=== PATIENT | female | born 1975 | race American Indian/Alaskan Native ===

== ENCOUNTER 2018-04-26 16:58 | Inpatient (IN) | payer BC ==
[2018-04-26 18:18] LABS: Hematocrit 41.5 % (30.3-42.9); Hemoglobin 14.1 gm/dl (10.1-14.3); Mean Corpuscular HGB Conc 34 % (30-34); Mean Corpuscular Volume 94 fl (79-97); Platelet Count 334 K/mm3 (140-440); Red Blood Count 4.41 M/mm3 (3.65-5.03); Red Cell Distribution Width 13.2 % (13.2-15.2)
[2018-04-26 18:37] LABS: BUN/Creatinine Ratio 15; Blood Urea Nitrogen 17 mg/dL (7-17); Hemolysis Index 1
[2018-04-26 19:27] LABS: Band Neutrophils # (Manual) 0.1 K/mm3; Basophils % (Manual) 0 % (0.0-1.8); Eosinophils % (Manual) 0 % (0.0-4.3); Total Cells Counted 100
[2018-04-26 19:28] LABS: Ovalocytes 1+; Platelet Estimate Consistent w Auto
--- NOTE | 2018-04-26 20:35 | XRay Report ---
FINAL REPORT EXAM: XR CHEST ROUTINE 2V HISTORY: Shortness of breath TECHNIQUE: PA and lateral views of the chest PRIORS: None. FINDINGS: Lines, tubes, and devices: N/A Lungs and pleura: Trachea is normal in position. Lungs are clear of infiltrate, pleural effusion, va scular congestion, or pneumothorax. Cardiomediastinal silhouette: Cardiac and mediastinal silhouettes are unremarkable. Other: Bony structures are intact. IMPRESSION: No acute cardiopulmonary process seen.
[2018-04-26] MEDS ORDERED: SUBLIMAZE IV ONE (21:24)
[2018-04-26] MEDS ORDERED: NITRO-BID 2% TP ONE (21:24)
[2018-04-26] MEDS ORDERED: ZOFRAN IV ONE (21:24)
--- NOTE | 2018-04-26 21:24 | Emergency Department Report ---
HPI - General Chief Complaint: Chest Pain Time Seen by Provider: 04/26/18 20:17 - HPI HPI: [place] 5 The patient is a 42-year-old female presenting with a chief complaint of chest pain and headache. The patient states her symptoms began 3 days ago with a c onstant frontal headache. Patient denies any preceding trauma. The patient states today she developed substernal left-sided chest pain described as pressure. The patient states the pain was initially intermittent but has now become constant. The patient states she does have shortness of breath, diaphoresis and nausea with her chest pain. Patient denies any recent flights or long car trips. Patient gives her chest pain score of 4-5/10 and her headache is score of 8-9/10. Patient states she's never had a stress test or cardiac catheterization Location: Chest, head Duration: [See above] Quality: Pressure Severity: 4-9/10, see above Modifying factors: [see above] Context: [see above] Mode of transportation: [not driving] ED Past Medical Hx - Past Medical History Previous Medical History?: Yes Hx Asthma: Yes - Surgical History Past Surgical History?: No - Family History Family history: no significant - Social History Smoking Status: Never Smoker Substance Use Type: None (denies illicit drug use), Alcohol (occasional) ED Review of Systems ROS: Stated complaint: HEADACHE/CHEST PAIN Other details as noted in HPI Constitutional: diaphoresis Eyes: denies: eye pain ENT: denies: throat pain Respiratory: shortness of breath Cardiovascular: chest pain Endocrine: no symptoms reported Gastrointestinal: nausea. denies: vomiting Genitourinary: denies: dysuria Musculoskeletal: denies: back pain Neurological: headache Physical Exam - Physical Exam Vital Signs: Vital Signs 04/26/18 04/26/18 17:37 19:52 Temperature 99.9 F H 100.3 F H Pulse Rate 130 H 121 H Respiratory 20 18 Rate Blood Pressure 160/98 155/94 O2 Sat by Pulse 98 100 Oximetry Physical Exam: GENERAL: The patient is well-developed well-nourished female sitting on stretcher not appearing to be in acute distress. [] HEENT: Normocephalic. Atraumatic. Extraocular motions are intact. Patient has moist mucous membranes. NECK: Supple. No meningitic signs are noted. Trachea midline CHEST/LUNGS: Clear to auscultation. There is no respiratory distress noted. HEART/CARDIOVASCULAR: Regular. There is no tachycardia. There is no gallop rub or murmur. ABDOMEN: Abdomen is soft, nontender. Patient has normal bowel sounds. There is no abdominal distention. SKIN: There is no rash. There is no edema. There is no diaphoresis. NEURO: The patient is awake, alert, and oriented. The patient is cooperative. The patient has no focal neurologic deficits. The patient has normal speech. Cranial nerves II through XII grossly intact, no drift MUSCULOSKELETAL: There is no evidence of acute injury. ED Course Vital Signs 04/26/18 04/26/18 17:37 19:52 Temperature 99.9 F H 100.3 F H Pulse Rate 130 H 121 H Respiratory 20 18 Rate Blood Pressure 160/98 155/94 O2 Sat by Pulse 98 100 Oximetry - Consultations Consultation #1: 04/26/18 CT chest ordered per hospitalist request (Dr. Nicole Cummings) ED Medical Decision Making - Lab Data Result diagrams: 04/26/18 18:04 04/26/18 18:04 - EKG Data -: EKG Interpreted by Me EKG shows normal: sinus rhythm Rate: tachycardia (114 bpm) - EKG Data When compared to previous EKG there are: previous EKG unavailable Interpretation: nonspecific ST-T wave rayne (T-wave inversion in lead V2) - Radiology Data Radiology results: report reviewed (CT head, chest x-ray), image reviewed (CT head, chest x-ray) interpreted by me: Chest x-ray-no focal infiltrate, no pneumothorax [facility] [address] [place] [address] Cat Scan Report Signed Patient: KALIE MOSER MR#: [id number] : 1975 Acct:[id number] Age/Sex: 42 / F ADM Date: 04/26/18 Loc: ED Attending Dr: Ordering Physician: MAXIMO BLACKWELL MD Date of Service: 04/26/18 Procedure(s): CT head/brain wo con Accession Number(s): [id number] cc: MAXIMO BLACKWELL MD FINAL REPORT EXAM: CT HEAD/BRAIN WO CON HISTORY: headache TECHNIQUE: Standard unenhanced CT of the head at 5.0 millimeter axial increments. PRIORS: None. FINDINGS: The vent ricular system is normal in size and configuration. There is no evidence for parenchymal volume loss. There is no evidence for mass lesion, mass effect, midline shift, acute intracranial hemorrhage, or acute ischemia/ infarction. No evidence for acute skull fracture is seen. No abnormality in the overlying scalp soft tissues is seen. Visualized paranasal sinuses are clear. IMPRESSION: Negative CT of the head. No acute intracranial process noted. Transcribed By: [facility] Dictated By: NAVYA OSORIO MD Electronically Authenticated By: NAVYA OSORIO MD Signed Date/Time: 04/26/182221 DD/ 23 TD/TT: 04/26/182223 [facility] [address] [place] [address] XRay Report Signed Patient: KALIE MOSER MR#: [id number] : 1975 Acct:[id number] Age/Sex: 42 / F ADM Date: 04/26/18 Loc: ED Attending Dr: Ordering Physician: MAXIMO BLACKWELL MD Date of Service: 04/26/18 Procedure(s): XR chest routine 2V Accession Number(s): [id number] cc: MAXIMO BLACKWELL MD Fluoro Time In Minutes: FINAL REPORT EXAM: XR CHEST ROUTINE 2V HISTORY: Shortness of breath TECHNIQUE: PA and lateral views of the chest PRIORS: None. FINDINGS: Lines, tubes, and devices: N/A Lungs and pleura: Trachea is normal in position. Lungs are clear of infiltrate, pleural effusion, vascular congestion, or pneumothorax. Cardiomediastinal silhouette: Cardiac and mediastinal silhouettes are unremarkable. Other: Bony structures are intact. IMPRESSION: No acute cardiopul monary process seen. Transcribed By: [facility] Dictated By: NAVYA OSORIO MD Electronically Authenticated By: NAVYA OSORIO MD Signed Date/Time: 04/26/182034 DD/ 36 TD/TT: 04/26/182036 - Differential Diagnosis ACS, ICH, PE, pericarditis, GERD Critical care attestation.: If time is entered above; I have spent that time in minutes in the direct care of this critically ill patient, excluding procedure time. ED Disposition Clinical Impression: Chest pain, Headache Disposition: OP ADMIT IP TO THIS HOSP Is pt being admited?: Yes Does the pt Need Aspirin: Yes Condition: Fair Instructions: Chest Pain (ED) Referrals: PRIMARY CARE,MD [Primary Care Provider] - 3-5 Days Time of Disposition: 22:34 (hospitalist notified (Dr. Nicole Cummings))
[2018-04-26] MEDS ORDERED: TYLENOL PO ONE (21:29)
--- NOTE | 2018-04-26 22:22 | Cat Scan Report ---
FINAL REPORT EXAM: CT HEAD/BRAIN WO CON HISTORY: headache TECHNIQUE: Standard unenhanced CT of the head at 5.0 millimeter axial increments. PRIORS: None. FINDINGS: The ventricular system is normal in size and configuration. There is no evidence for parenchymal volu me loss. There is no evidence for mass lesion, mass effect, midline shift, acute intracranial hemorrhage, or a cute ischemia/ infarction. No evidence for acute skull fracture is seen. No abnormality in the overlying scalp soft tissues is seen. Visualized paranasal sinuses are clear. IMPRESSION: Negative CT of the head. No acute intracranial process noted.
[2018-04-26] MEDS ORDERED: ASPIRIN PO ONE (22:35)
--- NOTE | 2018-04-26 23:39 | Cat Scan Report ---
FINAL REPORT PROCEDURE: CT ANGIO CHEST TECHNIQUE: Computerized tomographic angiography of the chest was performed after the IV injection of iodinated nonionic contrast including image processing. The image data was postprocessed using 2-dim ensional multiplanar reformatted (MPR) and 3-dimensional (MIP and/or volume rendered) techniques. HISTORY: chest pain COMPARISON: No prior studies are available for comparison. FINDINGS: There is suboptimal opacification of of pulmonary arterial tree. There are no obvious filling defects . Hilar structures are within normal limits. Aorta is of normal caliber. There is no lymphadenopathy. Thyroid is unremarkable as visualized. A 3 millimeter subpleural nodule noted in the lateral segment right lower lobe as visualized image 66 of series 2. There are multiple ill-defined hypodense lesion s in bilateral lobes of liver largest measuring 2 centimeters located at the junction of segments 4 a nd 8 a well-defined cystic lesion measuring 1.1 x 1.4 centimeters is noted segment 7 of right lobe. V ertebral height is normal. IMPRESSION: There is suboptimal opacification of pulmonary arterial tree. No obvious pulmonary embolism is noted. 3 millimeters subpleural nodule lateral segment right lower lobe. A 3 to six-month follow-up is recom mended. Ill-defined hypodense lesions are noted in the liver suspicious for a neoplastic process such as meta static disease. Pre and post-contrast MRI are recommended for further evaluation.
--- NOTE | 2018-04-26 23:50 | History and Physical Report ---
History of Present Illness Date of examination: 04/26/18 History of present illness: 42-year-old woman with no medical history comes to the emergency room for evaluation of chest pain. Pain is in the left chest which she describes as a someone sitting on chest,constant, radiating to the left arm, intensity 5/10, cannot identify exacerbating or relieving factors. Admits to nausea vomiting, shortness of breath, no diaphoresis or palpitation. Also complained of a headache, now better Review of systems Constitutional: no weight loss, chills, fever Ears, eyes, nose, mouth and throat: no nasal congestion, no nasal discharge, no sinus pressure, no vision change, no red eye. Neck: No neck pain or rigidity. Cardiovascular: no palpitations Respiratory: no cough Gastrointestinal: no hematochezia, abdominal pain Genitourinary : no frequency , no hematuria Musculoskeletal: no joint swelling or muscle ache Integumentary: no rash, no pruritis Neurological: no parathesias, no focal weakness Endocrine: no cold or heat intolerance, no polyuria or polydipsia Hematologic/Lymphatic: no easy bruising, no easy bleeding, no gland swelling Allergic/Immunologic: no urticaria, no angioedema. PAST MEDICAL HISTORY: none PAST SURGICAL HISTORY: none SOCIAL HISTORY: + alcohol, Denies drugs, tobacco FAMILY HISTORY: Hypertension Medications and Allergies Allergies Allergy/AdvReac Type Severity Reaction Status Date / Time No Known Allergies Allergy Unverified 04/26/18 17:41 Exam - Physical Exam Narrative exam: General Apperance: The patient lying in bed, breathing comfortable HEENT: Normocephalic, atraumatic. Pupils equally round and reactive to light, EOMI, no sclericterus or JVD or thyromegaly or nodule. , no carotid bruit, mucous membranes moist, no exudate or erythema Heart: S1-S2, regular is rhythm Lungs: Clear to auscultation bilaterally, breathing comfortable Abdomen: Positive bowel sounds, soft, nontender, nondistended, no organomegaly Extremities: No edema cyanosis clubbing Skin:no rash, nodule, warm and dry Neuro: cranial nerves 2-12 intact, speech is fluent, motor/sensory intact - Constitutional Vitals: Temp Pulse Resp BP Pulse Ox 100.3 F H 121 H 18 155/94 100 04/26/18 19:52 04/26/18 19:52 04/26/18 19:52 04/26/18 19:52 04/26/18 19:52 Results - Labs CBC & Chem 7: 04/27/18 03:59 04/27/18 03:59 Labs: Abnormal lab results 04/26/18 04/26/18 04/26/18 Range/Units 18:04 18:04 20:35 Seg Neuts % (Manual) 87.0 H (40.0-70.0) % Lymphocytes % (Manual) 7.0 L (13.4-35.0) % Lymphocytes # (Manual) 0.5 L (1.2-5.4) K/mm3 D-Dimer 234.26 H (0-234) ng/mlDDU Sodium 136 L (137-145) mmol/L Glucose 114 H (65-100) mg/dL - Imaging and Cardiology EKG: image reviewed Chest x-ray: report reviewed CT scan - chest: report reviewed CT Scan - head: report reviewed Assessment and Plan Assessment SIRS Chest pain, rule out ACS Abnormal lesions in the liver Plan Admit to medicine Check cardiac enzymes, stress test Obtain MRI of the abdomen Obtain blood cultures, urinalysis, start IV Rocephin DVT prophylaxis, IV morphine
[2018-04-27] MEDS ORDERED: REGLAN IV PRN (00:55)
[2018-04-27] MEDS ORDERED: TYLENOL PO PRN (00:55)
[2018-04-27] MEDS ORDERED: MORPHINE IV PRN (00:55)
[2018-04-27] MEDS ORDERED: ZOFRAN IV PRN (00:55)
[2018-04-27] MEDS ORDERED: SODIUM CHLORIDE FLUSH SYRINGE 10 ML IV PRN (00:55)
[2018-04-27] MEDS ORDERED: NITRO-BID 2% TP ONE (01:00)
[2018-04-27] MEDS ORDERED: BABY ASPIRIN ONE (01:00)
[2018-04-27] MEDS ORDERED: ASPIRIN ONE (02:34)
[2018-04-27] MEDS ORDERED: ROCEPHIN/NS 1 GM/50 ML 1 GM/50 ML BAG IV SCH (04:00)
[2018-04-27 04:21] LABS: Basophils % (Auto) 0.1 % (0.0-1.8); Eosinophils % (Auto) 0.1 % (0.0-4.3); Hematocrit 38.3 % (30.3-42.9); Hemoglobin 12.8 gm/dl (10.1-14.3); Lymphocytes # (Auto) 0.4 K/mm3 (1.2-5.4); Lymphocytes % (Auto) 6.9 % (13.4-35.0); Mean Corpuscular HGB Conc 33 % (30-34); Mean Corpuscular Volume 95 fl (79-97); Monocytes # (Auto) 0.4 K/mm3 (0.0-0.8); Platelet Count 310 K/mm3 (140-440); Red Blood Count 4.02 M/mm3 (3.65-5.03); Red Cell Distribution Width 13.3 % (13.2-15.2)
[2018-04-27 04:34] LABS: Alanine Aminotransferase 20 units/L (7-56); Albumin 3.9 g/dL (3.9-5); BUN/Creatinine Ratio 17; Blood Urea Nitrogen 17 mg/dL (7-17); Calcium 8.5 mg/dL (8.4-10.2); Hemolysis Index 4
[2018-04-27] MEDS ORDERED: SODIUM CHLORIDE FLUSH SYRINGE 10 ML IV SCH (10:00)
[2018-04-27] MEDS ORDERED: LOVENOX SUB-Q SCH ×3 (10:00)
[2018-04-27] MEDS ORDERED: LEXISCAN IV ONE (13:53)
--- NOTE | 2018-04-27 15:52 | Magnetic Resonance Report ---
MRI ABDOMEN WITHOUT AND WITH CONTRAST : 04/27/18 CLINICAL: Liver lesions on recent CT. COMPARISON :CT chest with contrast 04/26/18 TECHNIQUE: Axial T1 in phase and opposed phase, coronal and axial T2 and axial T2 fat sat sequences plus multiphase postcontrast T1 fat sat sequences on a 1.5 Margot magnet. 7.0 cc of Multihance was injected intravenously for the contrast portion of the exam and consent was obtained prior to the administration of the contrast. FINDINGS: Normal liver size, contour and overall signal. Multiple right and left lobe benign hepatic cysts which demonstrate hypointensity on T1, hyperintensity on T2 and no enhancement post contrast. No liver mass. The gallbladder and bile ducts are normal. Normal hepatic and portal vasculature. The inferior vena cava is normal. Normal aorta. Normal stomach, duodenum, pancreas and spleen. Normal adrenal glands and kidneys. The renal collecting systems and ureters are nondilated. No mass or lymphadenopathy. No ascites. The small bowel and large bowel are unremarkable. The bones and soft tissues are normal. IMPRESSION: Benign hepatic cysts and otherwise normal abdomen.
--- NOTE | 2018-04-27 18:49 | Discharge Summary ---
Providers - Providers Date of Admission: 04/26/18 23:50 Date of discharge: 04/27/18 Attending physician: ELROY GRIDER Primary care physician: JIM HULL MD Hospitalization Condition: Fair Pertinent studies: CTA chest MRI abdomen CXR myocardial stress test Hospital course: 42-year-old woman with no medical history comes to the emergency room for evaluation of chest pain. Pain was in the left chest which she described as a someone sitting on chest,constant, radiating to the left arm, intensity 5/10, cannot identify exacerbating or relieving factors. She was admitted for further evaluation and management. Her CTA chest showed no PE, stress test showed no reversible ischemia. Her CTA chest showed hepatic lesion, MRI abdomen showed simple cyst. Patient was then placed on PPI and discharged home in stable condition. Discharge diagnosis: SIRS, likely stress induced, blood cx negative, no infiltrtaes on cxr/cta Chest pain, ruled out ACS, likely GERD Abnormal lesions in the liver, simple cyst based on MRI Disposition: TO HOME OR SELFCARE Time spent for discharge: 34 minutes Core Measure Documentation - Palliative Care Palliative Care/ Comfort Measures: Not Applicable - Core Measures Any of the following diagnoses?: none Exam - Physical Exam Narrative exam: General Apperance: The patient lying in bed, breathing comfortable HEENT: Normocephalic, atraumatic. Pupils equally round and reactive to light, EOMI, no sclericterus or JVD or thyromegaly or nodule. , no carotid bruit, mucous membranes moist, no exudate or erythema Heart: S1-S2, regular is rhythm Lungs: Clear to auscultation bilaterally, breathing comfortable Abdomen: Positive bowel sounds, soft, nontender, nondistended, no organomegaly Extremities: No edema cyanosis clubbing Skin:no rash, nodule, warm and dry Neuro: cranial nerves 2-12 intact, speech is fluent, motor/sensory intact - Constitutional Vitals: Temp Pulse Resp BP Pulse Ox 98.0 F 83 20 128/81 98 04/27/18 16:33 04/27/18 16:33 04/27/18 16:33 04/27/18 16:33 04/27/18 16:33 Plan Activity: advance as tolerated Weight Bearing Status: Weight Bear as Tolerated Diet: low fat Follow up with: PRIMARY CARE, [Primary Care Provider] - 3-5 Days Prescriptions: Pantoprazole [Protonix] 40 mg PO QDAY #30 tablet
--- NOTE | 2018-04-27 20:07 | Treadmill Report ---
PROCEDURE: Single-isotope dual-study myocardial perfusion scan. REFERRING PHYSICIAN: Nicole Cummings MD SEEN AND DICTATED BY: Bharat nSyder MD The patient received 10 mCi of technetium 99m Myoview intravenously under resting conditions. Resting myocardial perfusion scan was done. Subsequently, the patient underwent exercise stress test as per the standard [facility]al[facility] protocol. During exercise stress test stress test, the patient received 28 mCi of technetium 99m Myoview intravenously. After 30-60 minutes, post stress images were done. Computerized reconstruction image were performed for analysis. The post-stress images did not reveal any perfusion abnormality. Gated study did not reveal any wall motion abnormality. The left ventricle was found to be hyperdynamic with the LVEF of 77%. The stress images were also normal. CONCLUSION: 1. Normal resting and stress myocardial perfusion scan images after the patient underwent exercise stress nuclear scan. 2. No wall motion abnormality. 3. Hyperdynamic left ventricle with LVEF of 77%. [facility]# [id number] [facility]
[2018-04-27 20:24] VITALS: BP 126/75
--- NOTE | 2018-05-03 11:43 | Query- Chest Pain ---
Hugo Schrader Date:___05/03/2018 Continuous Improvement Coordinator/CDS:___Kirsty/Jaylin Phone#:__[phone] Exercise your independent professional judgment when responding to query. Questions asked do not imply a particular answer is desired or expected. We greatly appreciate your clarification on this issue. Clinical Documentation States: 42-year-old woman with no medical history comes to the emergency room for evaluation of chest pain. Pain is in the left chest which she describes as a someone sitting on chest,constant, radiating to the left arm, intensity 5/10, cannot identify exacerbating or relieving factors. Admits to nausea vomiting, shortness of breath, no diaphoresis or palpitation. Also complained of a headache, now better Assessment and Plan Chest pain, rule out ACS Please document the etiology of Chest Pain: [ ] Myocardial Infarction [ ] Pneumonia [ ] Mediastinitis [ ] Costochondritis [ ] Pulmonary Embolism [ ] Coronary Artery Disease [x ] GERD [ ] Other: [ ] Comment/Explanation: Present on Admission: [x ] Yes (Y) [ ] Clinically undeterminable (W) [ ] No(N) Please document response in your Progress Notes and/or Discharge Summary and indicate if the condition was present on admission. GERI
== END 2018-04-27 20:47 | disposition home or self-care (01) | DRG 392 ==
LOC: ED 16:58 → 4A 23:50
PROVIDERS: ADMIT Internal Medicine; ATTEND Internal Medicine
DX: K21.9 Gastro-esophageal reflux disease without esophagitis (principal); R65.10 Systemic inflammatory response syndrome (SIRS) of non-infectious origin without acute organ dysfunction; R07.9 Chest pain, unspecified; R51 Headache; K76.9 Liver disease, unspecified; J45.909 Unspecified asthma, uncomplicated; Z72.89 Other problems related to lifestyle; Z82.49 Family history of ischemic heart disease and other diseases of the circulatory system
CPT/HCPCS: 36415; 70450; 71046; 71275; 74183; 78452; 80048; 80053; 84484; 84703; 85007; 85025; 85379; 87040; 93005; 93010; 93017; G0378; A9502; A9577; J0696; J2405; J2785; J3010; Q9967